=== PATIENT | female | born 1980 | race Caucasian/White ===

== ENCOUNTER 2017-02-20 09:46 | Emergency (ER) | payer OTHER ==
[2017-02-20 10:17] VITALS: BP 150/100
--- NOTE | 2017-02-20 10:59 | UC ---
Throat Pain/Nasal [place]apan HPI - HPI Summary HPI Summary: Cough and nasal congestion starting 3 days ago, says usually she has more nasal congestion and less coughing with her "sinus infections." Temps about 100F. ST since yesterday. Some wheezing and trouble breathing, occasionally has problems breathing with illness. - History of Current Complaint Chief Complaint: UCRespiratory Stated Complaint: CONGESTION SORE THROAT COUGH Time Seen by Provider: 02/20/17 10:28 Hx Obtained From: Patient Hx Last Menstrual Period: 02/02/17 ?: No Onset/Duration: Gradual Onset Severity: Mild Cough: Productive Associated Signs & Symptoms: Positive: Sinus Discomfort, Nasal Discharge. Negative: Fever, Vomiting, Rash - Allergies/Home Medications Allergies/Adverse Reactions: Allergies Allergy/AdvReac Type Severity Reaction Status Date / Time seasonal Allergy Congestion Uncoded 02/20/17 10:18 Home Medications: Home Medications Cetirizine* [ZyrTEC 10 MG TAB*] 10 mg PO DAILY 02/20/17 [History Confirmed 02/20] PMH/Surg Hx/FS Hx/Imm Hx Endocrine History Of: Reports: Thyroid Disease - hypo - Surgical History Surgical History: Yes Surgery Procedure, Year, and Place: [facility] on back 2005 - Family History Known Family History: Negative: Blood Disorder - Social History Lives: With Family Alcohol Use: Daily Alcohol Amount: 1-2 Substance Use Type: None Smoking Status (MU): Former Smoker Review of Systems Constitutional: Negative Skin: Negative Eyes: Negative ENT: Sore Throat, Nasal Discharge Respiratory: Cough Cardiovascular: Negative Gastrointestinal: Negative Genitourinary: Negative Motor: Negative Neurovascular: Negative Musculoskeletal: Negative Neurological: Negative Psychological: Negative All Other Systems Reviewed And Are Negative: Yes Physical Exam Triage Information Reviewed: Yes Appearance: Well-Appearing, No Pain Distress, Well-Nourished Vital Signs: Initial Vital Signs Temp 99.1 F 02/20/17 10:05 Pulse 106 02/20/17 10:05 Resp 18 02/20/17 10:05 BP 150/100 02/20/17 10:05 Pulse Ox 100 02/20/17 10:05 Vital Signs Reviewed: Yes Eye Exam: Normal Eyes: Positive: Conjunctiva Clear ENT: Positive: Hearing grossly normal, Pharynx normal, Nasal congestion, TMs normal. Negative: Tonsillar swelling, Tonsillar exudate Dental Exam: Normal Neck exam: Normal Neck: Positive: Supple, Nontender, No Lymphadenopathy Respiratory: Positive: Chest non-tender, Normal breath sounds, Wheezing - minimal at bases Cardiovascular: Positive: No Murmur, Tachycardia Abdominal Exam: Normal Musculoskeletal Exam: Normal Neurological Exam: Normal Neurological: Positive: Alert Psychological Exam: Normal Skin Exam: Normal Throat Pain/Nasal Course/Dx - Differential Dx/Diagnosis Provider Diagnoses: URI, likely viral Discharge - Discharge Plan Condition: Stable Disposition: HOME Prescriptions: Albuterol HFA INHALER* [Ventolin HFA Inhaler*] 1 - 2 puff INH Q4H PRN #1 mdi PRN Reason: Wheezing Patient Education Materials: Upper Respiratory Infection (ED) Referrals: Jayden JARA,Sabrina Carlos [Primary Care Provider] - Additional Instructions: Rapid strep negative. Call or return if you develop increasing fever, shortness of breath, chest pain , bloody sputum, or otherwise worsen. If you have not improved at all after several days, contact your primary care physician or return here.
== END 2017-02-20 11:06 | disposition home or self-care (01) ==
LOC: UCCORT 09:46
DX: J06.9 Acute upper respiratory infection, unspecified (principal); E03.9 Hypothyroidism, unspecified; Z85.820 Personal history of malignant melanoma of skin; Z87.891 Personal history of nicotine dependence
CPT/HCPCS: 87651; 99212; G0463

== ENCOUNTER 2018-09-11 08:00 | Emergency (ER) | payer OTHER ==
[2018-09-11 08:26] VITALS: BP 140/83
--- NOTE | 2018-09-11 08:43 | UC ---
Bite Injury/Animal HPI - HPI Summary HPI Summary: 37-year-old woman comes in with a chief complaint of 3-1/2 days ago removing what might have been a tick from her umbilicus. She noticed a brown black small mass attached inside her umbilicus and she removed it with tweezers. No rash no fevers. She is 26 weeks . She wasn't totally sure if it was a tick or not. She feels well. - History of Current Complaint Chief Complaint: UCSkin Stated Complaint: TICK Time Seen by Provider: 09/11/18 08:21 Hx Last Menstrual Period: 02/02/17 Pain Intensity: 5 - Allergies/Home Medications Allergies/Adverse Reactions: Allergies Allergy/AdvReac Type Severity Reaction Status Date / Time seasonal Allergy Congestion Uncoded 09/11/18 08:18 PMH/Surg Hx/FS Hx/Imm Hx Previously Healthy: Yes - Surgical History Surgical History: Yes Surgery Procedure, Year, and Place: [facility] on back 2005 - Family History Known Family History: Negative: Diabetes, Blood Disorder - Social History Alcohol Use: None Alcohol Amount: 1-2 Substance Use Type: None Smoking Status (MU): Never Smoked Tobacco Review of Systems Constitutional: Negative Skin: Other - see hpi Eyes: Negative ENT: Negative Respiratory: Negative Cardiovascular: Negative Gastrointestinal: Negative Motor: Negative Neurovascular: Negative Musculoskeletal: Negative Neurological: Negative Psychological: Negative Is Patient Immunocompromised?: No All Other Systems Reviewed And Are Negative: Yes Physical Exam Triage Information Reviewed: Yes Appearance: Well-Appearing, No Pain Distress, Well-Nourished Vital Signs: Initial Vital Signs Temp 98.1 F 09/11/18 08:19 Pulse 83 09/11/18 08:19 Resp 16 09/11/18 08:19 BP 140/83 09/11/18 08:19 Pulse Ox 99 09/11/18 08:19 Vital Signs Reviewed: Yes Eye Exam: Normal Eyes: Positive: Conjunctiva Clear Neck exam: Normal Neck: Positive: Supple Respiratory: Positive: No respiratory distress Musculoskeletal Exam: Normal Musculoskeletal: Positive: Strength Intact, ROM Intact Neurological Exam: Normal Neurological: Positive: Alert, Muscle Tone Normal Psychological Exam: Normal Psychological: Positive: Age Appropriate Behavior Skin: Positive: Other - The umbilicus does not have any rash or any skin breakdown. No foreign body. Bite Injury Course/Dx - Course Course Of Treatment: Patient's not really sure if there was a tick. Were greater than 72 hours after removal. Patient is and therefore cannot use doxycycline. Discussed all the criteria for tick bite prophylaxis with the patient. At this time the plan will be to have her follow-up with her primary care doctor if she starts having any symptoms of Lyme disease. - Differential Dx/Diagnosis Provider Diagnoses: tick bite Discharge - Sign-Out/Discharge Documenting (check all that apply): Patient Departure All imaging exams completed and their final reports reviewed: No Studies - Discharge Plan Condition: Stable Disposition: HOME Patient Education Materials: Tick Bite (ED) Referrals: [facility] [Outside] Additional Instructions: FOLLOW UP WITH YOUR DOCTOR IF NOT COMPLETELY IMPROVED. GET RECHECKED FOR ANY WORSENING OF YOUR CONDITION OR QUESTIONS OR CONCERNS. - Billing Disposition and Condition Condition: STABLE Disposition: Home
== END 2018-09-11 09:00 | disposition home or self-care (01) ==
LOC: UCCORT 08:03
DX: O99.89 Other specified diseases and conditions complicating pregnancy, childbirth and the puerperium (principal); S30.861A Insect bite (nonvenomous) of abdominal wall, initial encounter; J30.2 Other seasonal allergic rhinitis; W57.XXXA Bitten or stung by nonvenomous insect and other nonvenomous arthropods, initial encounter; Y92.9 Unspecified place or not applicable; Z85.828 Personal history of other malignant neoplasm of skin; Z3A.26 26 weeks gestation of pregnancy
CPT/HCPCS: 99211; G0463

== ENCOUNTER 2018-09-18 13:56 | Emergency (ER) | payer OTHER ==
--- NOTE | 2018-09-18 15:04 | UC ---
Lower Extremity/Ankle HPI - HPI Summary HPI Summary: 37 [id number] comes in with a chief complaint of left foot injury. Last night she stepped on a piece of metal. He said it was stuck in a couple of millimeters. It was marques. There was pain while the piece of metal was in there but when she pulled it out the pain has essentially gone away. She is 26 weeks and she spoke to her doctor today and her doctor said that he definitely need a tetanus shot. There is no redness around the area no drainage. She's feeling the baby move she feels well otherwise no headache no abdominal pain. She does have some bilateral pedal edema that's developed over the last 2-3 weeks. - History of Current Complaint Chief Complaint: Skye Stated Complaint: FOOT WOUND Time Seen by Provider: 09/18/18 14:55 Hx Last Menstrual Period: 02/02/17 Pain Intensity: 1 - Allergies/Home Medications Allergies/Adverse Reactions: Allergies Allergy/AdvReac Type Severity Reaction Status Date / Time seasonal Allergy Congestion Uncoded 09/18/18 14:11 Home Medications: Home Medications Docusate CAP* [Colace Cap*] 100 mg PO DAILY PRN 09/18/18 [History Confirmed ] 21/Iron Fu/Folic Acid [ Complete] 1 tab PO DAILY 09/18/18 [ History Confirmed 09/18/18] PMH/Surg Hx/FS Hx/Imm Hx Previously Healthy: Yes - 26 WEEKS - Surgical History Surgical History: Yes Surgery Procedure, Year, and Place: [facility] 2005 - Family History Known Family History: Negative: Diabetes, Blood Disorder - Social History Alcohol Use: None Alcohol Amount: 1-2 Substance Use Type: None Smoking Status (MU): Never Smoked Tobacco - Immunization History Most Recent Tetanus Shot: 2006 Review of Systems Constitutional: Negative Skin: Other - SEE HPI Eyes: Negative ENT: Negative Respiratory: Negative Cardiovascular: Negative Gastrointestinal: Negative Genitourinary: Negative Motor: Negative Neurovascular: Negative Musculoskeletal: Negative Neurological: Negative Psychological: Negative Is Patient Immunocompromised?: No All Other Systems Reviewed And Are Negative: Yes Physical Exam Triage Information Reviewed: Yes Appearance: Well-Appearing, No Pain Distress, Well-Nourished Vital Signs: Initial Vital Signs Temp 98.4 F 09/18/18 14:04 Pulse 89 10/31/18 14:04 Resp 16 09/18/18 14:04 BP 160/110 09/18/18 14:04 Pulse Ox 98 09/18/18 14:04 Vital Signs Reviewed: Yes Eye Exam: Normal Eyes: Positive: Conjunctiva Clear Neck exam: Normal Neck: Positive: Supple Respiratory Exam: Normal Respiratory: Positive: Lungs clear, Normal breath sounds, No respiratory distress Cardiovascular Exam: Normal Cardiovascular: Positive: RRR Abdominal Exam: Normal Abdomen Description: Positive: Other: - 26 WEEKS PREGNAN 26 weeks Musculoskeletal: Positive: Strength Intact, ROM Intact, Other: - Trace bilateral pedal edema Neurological Exam: Normal Neurological: Positive: Alert, Muscle Tone Normal Psychological Exam: Normal Psychological: Positive: Age Appropriate Behavior Skin: Positive: Other - On the left heel on the dorsal aspect there is a pinpoint puncture wound site. It is not tender to palpation do not see any foreign body there is no erythema there is no drainage. Lower Extremity Course/Dx - Course Course Of Treatment: The piece of metal was reportedly only in the foot about 2 mm it's unlikely that it's a full-thickness puncture wound. There is no pain or any obvious foreign body. No signs of infection. GAve T tap here in clinic. Blood pressures in clinic were 160/110, 150/90, and 160/98. Patient is asymptomatic at this time. She tells me she has had some high blood pressure readings in the doctor's office when she was not . She has not been on any blood pressure medicines. We discussed hypertension and also preeclampsia. She does not have any blurry vision or headache. We discussed getting a urine sample and blood work for further evaluation here in clinic. The patient has emailed her content manager and plans to follow up with her content manager. She declined blood work and a urine sample at this time in our clinic. I let her know if she had any of the symptoms she should get evaluated right away. - Differential Dx/Diagnosis Provider Diagnoses: LEFT FOOT PUNCTURE WOUND. HYPERTENSION IN Discharge - Sign-Out/Discharge Documenting (check all that apply): Patient Departure All imaging exams completed and their final reports reviewed: No Studies - Discharge Plan Condition: Stable Disposition: HOME Patient Education Materials: Puncture Wound (ED), Hypertension During (ED) Referrals: Neha Forde MD [Medical Doctor] - Additional Instructions: FOLLOW UP WITH YOUR DOCTOR FOR YOUR ELEVATED BLOOD PRESSURES OF 160/110, 150/90 AND 160/98. GO TO THE EMERGENCY DEPARTMENT FOR ANY WORSENING OF YOUR CONDITION; HEADACHE, VISION CHANGE, SIGNS OF INFECTION OR QUESTIONS OR CONCERNS. - Billing Disposition and Condition Condition: STABLE Disposition: Home
[2018-09-18] MEDS ORDERED: Tetan/Diph/Pertus SYR(Tdap)* 0.5 ML SYR(BOOSTRIX) use SYR IM ONE (15:10)
[2018-09-18 15:32] VITALS: BP 150/90
== END 2018-09-18 16:20 | disposition home or self-care (01) ==
LOC: UCEAST 13:56
DX: O14.92 Unspecified pre-eclampsia, second trimester (principal); S91.332A Puncture wound without foreign body, left foot, initial encounter; W26.8XXA Contact with other sharp object(s), not elsewhere classified, initial encounter; Y92.9 Unspecified place or not applicable; Z23 Encounter for immunization; Z3A.26 26 weeks gestation of pregnancy
CPT/HCPCS: 90471; 90715; 99211; G0463

== ENCOUNTER 2018-12-28 10:05 | Emergency (ER) | payer OTHER ==
[2018-12-28 10:47] VITALS: BP 135/86
--- NOTE | 2018-12-28 11:27 | UC ---
Eye Complaint HPI - HPI Summary HPI Summary: Patient presents to urgent care for evaluation of her right eye. Patient states progressively over the last 3-4 days she's had focal swelling and erythema of the lower lid. Patient denies any drainage. No vision changes. No foreign body sensation currently. Patient states on Sunday she thought she had an eyelash or something in her eye that she got out. Patient does not wear corrective lenses. No eye burning. No photophobia. Patient without history of similar. Patient's on no medications. Patient is a nothing to treat. Patient's medications reviewed this visit. Patient is not . - History of Current Complaint Chief Complaint: UCEye Stated Complaint: EYE COMPLAINT Time Seen by Provider: 12/28/18 11:21 Hx Obtained From: Patient Hx Last Menstrual Period: 12/07/18 Onset/Duration: Gradual Onset Timing: Constant Severity Initially: Mild Severity Currently: Mild Pain Intensity: 2 Pain Scale Used: 0-10 Numeric Location of Injury: Eye Lid (lower) Aggravating Factor(s): Nothing Alleviating Factor(s): Nothing - Allergies/Home Medications Allergies/Adverse Reactions: Allergies Allergy/AdvReac Type Severity Reaction Status Date / Time seasonal Allergy Congestion Uncoded 12/28/18 10:48 Home Medications: Home Medications NIFEdipine ER TAB* [Procardia Xl TAB*] 60 mg PO BID 12/28/18 [History Confirmed 12/28/18] PMH/Surg Hx/FS Hx/Imm Hx Previously Healthy: Yes - Surgical History Surgical History: Yes Surgery Procedure, Year, and Place: melonoma on back 2005. preeclampsia 09/2018 - Family History Known Family History: Negative: Diabetes, Blood Disorder - Social History Alcohol Use: Occasionally Alcohol Amount: 1-2 Substance Use Type: None Smoking Status (MU): Never Smoked Tobacco - Immunization History Most Recent Tetanus Shot: 2006 Review of Systems All Other Systems Reviewed And Are Negative: Yes Eyes: Positive: Other - right lower lid Is Patient Immunocompromised?: No Physical Exam - Summary Physical Exam Summary: Vital Signs Reviewed: Yes A+Ox3, no distress Eyes: Conjunctiva Clear, YANIRA. EOM intact and full. Lower lid, medial aspect pt with erythema c/w stye. No photophobi, no drainage. fluoroscene - no uptake to cornea ENT: Hearing grossly normal TM x 2 clear, mmoist, uvula midline, no exudate, no erythema Neck: Positive: Supple Respiratory: Positive: No respiratory distress, No accessory muscle use + CTA throughout no w/r Cardiovascular: RRR nl s1, s2 no m/r CBT <2 sec abd soft + BS nt/nd no guarding, no distension Musculoskeletal Exam: ROMERO x 4 without difficulty Strength Intact, ROM Intact Neurological: Positive: Alert, + sensation throughout Psychological: Positive: Normal Response To Family Skin: Positive: no rash, no ecchymosis Triage Information Reviewed: Yes Vital Signs: Initial Vital Signs Temp 98.2 F 12/28/18 10:43 Pulse 79 12/28/18 10:43 Resp 16 12/28/18 10:43 BP 135/86 12/28/18 10:43 Pulse Ox 100 12/28/18 10:43 Eye Complaint Course/Dx - Course Course Of Treatment: Patient presents to urgent care with 3-4 days of progressive right eye lower lid erythema and discomfort. Patient does not wear corrective lenses. Patient without any photophobia vision changes. Vital signs are stable. Exam consistent with a stye the lower lid. No uptake with fluorescein. Patient tolerated exam well. Will prescribe erythromycin. Recommend warm soaks. Motrin/Tylenol. Return precautions. Patient comfortable agreement - Differential Dx/Diagnosis Provider Diagnosis: Hordeolum externum (stye) Discharge - Sign-Out/Discharge Documenting (check all that apply): Patient Departure All imaging exams completed and their final reports reviewed: No Studies - Discharge Plan Condition: Stable Disposition: HOME Prescriptions: Erythromycin OPHTH.OINT* [Ilotycin OPHTH.OINT*] 1 applic RIGHT EYE Q8HR #1 ophth.oint Patient Education Materials: Stye (ED) Referrals: No Primary Care Phys,NOPCP [Primary Care Provider] - Additional Instructions: - apply sloppy wet, warm soaks to your right eye, for 10 min, 3-4 times a day - use antibiotic ointment as prescribed - Okay to take Tylenol every 6 hours as needed for pain - contact your doctor, return here or go to the emergency department with questions or concerns - Billing Disposition and Condition Condition: STABLE Disposition: Home
[2018-12-28] MEDS ORDERED: Fluorescein Sodium TOPICAL* 1 MG TEST STRIP OPHTHALMIC ONE (11:37)
== END 2018-12-28 11:50 | disposition home or self-care (01) ==
LOC: UCEAST 10:05
DX: H00.012 Hordeolum externum right lower eyelid (principal)
CPT/HCPCS: 99212; A9270-GY; G0463